=== PATIENT | female | born 1990 | race Caucasian/White ===

== ENCOUNTER 2016-09-18 04:14 | Emergency (ER) | payer SELFPAY ==
--- NOTE | ~2016-09-18 | CR72 ---
[facility] A Service of [facility] & [facility] [place] RADIOLOGY TEXT RESULTS PATIENT: LULI HALL LOCATION: [facility] : [birth year] UNIT #: [id number] AGE: [address]: Cris Cash APRN SEX: F ORDER DR: [id number] [facility] [address] [place], [place] [address] [id number] MR#: [id number] Acc #: [id number] NAME: LULI HALL. : 1990 SEX: F STUDY DATE/TIME: 09/18/2016 6:25 UNIT: [facility] ROOM: STUDY DESCRIPTION: CR Chest Single View Portable Attending Physician: Cris Cash A.P.R.N. Ordering Physician: Cris Cash A.P.R.N. Primary Care Physician: Primary Care Physician No MEDICAL IMAGING REPORT This report is preliminary unless electronic signature is present EXAM Chest x-ray 09/18/2016 HISTORY 25-year-old female in the ED complaining of new onset right-side chest pain and shortness of air beginning earlier today. TECHNIQUE AP upright chest x-ray. FINDINGS The examination shows generalized pulmonary hyperinflation. No visible pulmonary infiltrate, pneumothorax or pleural effusion. Heart size and pulmonary vascularity are normal. No significant change since 04/27/2015. IMPRESSION 1. Generalized pulmonary hyperinflation. The lungs appear clear. 2. No significant change since 04/27/2015. Dictated by... Silas Pino M.D. THIS IS AN ELECTRONICALLY VERIFIED REPORT Silas Pino M.D. at 09/18/2016 11:13 AM JEMAL/aliyah TD: 09/18/2016 07:50 JOB #: [id number] MEDICAL IMAGING REPORT Page 1 of 1 COPY
[~2016-09-18 04:14] MED LIST: ALBUTEROL17 G1 IH; ALBUTEROL17 GM INH; AZITHROMYCIN1 GM PO; CIPRO PO; NO MEDICATIONS; PREDNISONE PO
== END 2016-09-18 07:11 | disposition home or self-care (01) ==
LOC: CED 04:14
DX: J45.909 Unspecified asthma, uncomplicated (principal); Z79.899 Other long term (current) drug therapy; F17.210 Nicotine dependence, cigarettes, uncomplicated
CPT/HCPCS: 71010; 94640; 99283